=== PATIENT | male | born 2005 | race Caucasian/White ===

== ENCOUNTER 2023-02-18 10:19 | Emergency (ER) | payer BC ==
[~2023-02-18] VITALS: Ht 175.3 cm; Wt 103.6 kg
[~2023-02-18 10:19] MED LIST: ADDERALL10 MG PO; PROZAC60 MG; WELLBUTRIN XL150 MG PO
[2023-02-18 10:26] VITALS: TEMP 97.5
[2023-02-18 12:16] VITALS: BP 123/74; PULSE 67
== END 2023-02-18 12:21 | disposition home or self-care (01) ==
LOC: COL.ER 10:19
DX: S93.602A Unspecified sprain of left foot, initial encounter (principal); F17.290 Nicotine dependence, other tobacco product, uncomplicated; V00.131A Fall from skateboard, initial encounter